=== PATIENT | female | born 1985 | race Caucasian/White ===

== ENCOUNTER → 2016-08-16 | Outpatient (CLI) | payer MEDICAID ==
--- NOTE | 2016-08-17 10:52 | CPEEG ---
[f rep st] ELECTROENCEPHALOGRAM DATE OF STUDY: 08/16/2016 INTRODUCTION: This is a multichannel EEG using the standard international 10- 20 system of disc electrode placement. A single EKG channel was monitored for the duration of the recording. This recording is undertaken for evaluation of 2 unprovoked generalized convulsions. Pertinent medications include levetiracetam. The recording time for this study is 30 minutes. DESCRIPTION OF RECORDING: In the maximum alert state, the patient achieves symmetric posterior dominant rhythm of 11 Hz alpha that attenuates with eye opening. Activating measures including photic stimulation and hyperventilation were performed, and they both failed to activate the tracing. The patient was observed to be drowsy as marked by slow roving eye movements, attenuation of the background and anterior spread of alpha. N1 sleep was observed as marked by POSTS and vertex waves. N2 sleep was observed as marked by K complexes and spindle activity. Deeper stages of sleep were not observed. The EKG demonstrated normal sinus rhythm. INTERPRETATION: This is a normal awake through N2 sleep EEG. CLINICAL CORRELATION: No focal lateralizing epileptiform discharges or electrographic seizures observed. A normal EEG does not preclude a diagnosis of epilepsy and clinical correlation is advised. /[id number]/MODL MTDD
== END ==
LOC: FCPNEURO 08:49
PROVIDERS: ATTEND Psychiatry & Neurology Neurology
DX: R56.9 Unspecified convulsions (principal)

== ENCOUNTER → 2018-10-26 | Outpatient (CLI) | payer MEDICAID ==
--- NOTE | 2018-10-29 20:17 | CPEEG ---
[f rep st] ELECTROENCEPHALOGRAM 4-HOUR VIDEO EEG. DATE OF STUDY: INTERPRETATION: This 4-hour video EEG recording is abnormal due to the presence of irregular general ized spike and wave discharges and generalized poly-spike and wave discharges. 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 The patient did not have any definite clinical events during the video EEG monitoring session. An extensive message was left with the patient regar ding these abnormal findings and the treatment plan. REPORT: This 4-hour video EEG contains 10 Hz alpha activity over the posterior head regions. The roge law feature of this recording was the presence of a low amplitude, irregular generalized spike and w ave and generalized poly-spike and wave discharge present at rest with additional activation during p hotic stimulation and hyperventilation. The patient became drowsy and fell into sustained sleep durin g the recording. During drowsiness, there was increased activation of these generalized spike and wav e discharges. During deeper stages of non-REM sleep, there appeared to be less activation of the epil eptiform discharges. There were no definite clinical events recorded during the video EEG monitoring session. /[id number]/MODL
== END ==
LOC: FCPNEURO 09:35
PROVIDERS: ATTEND Psychiatry & Neurology Neurology
DX: G40.909 Epilepsy, unspecified, not intractable, without status epilepticus (principal)